=== PATIENT | female | born 1985 | race Two or more races ===

== ENCOUNTER 2021-12-17 03:41 | Inpatient (IN) | payer BC ==
[2021-12-17 04:27] VITALS: BMI 29.7
[2021-12-17] MEDS: DEXTROSE 5%-LACTATED RINGERS 1,000 ML IV SCH (04:30)
[2021-12-17] MEDS ORDERED: BUTORPHANOL TARTRATE 1 MG/ML VIAL IVPB ONE (04:30)
[2021-12-17] MEDS ORDERED: PROMETHAZINE HCL 25 MG/1 ML VIAL IVPB ONE (04:30)
[2021-12-17 04:52] LABS: BASO % 0.3 % (0-2.0); EOS % 0.7 % (0-4.5); HEMATOCRIT 38.8 % (32.4-45.2); HEMOGLOBIN 13.4 GM/dL (10.7-15.3); LYMPH % 20.8 % (8-40); MCH 30.6 pg (25.7-33.7); MCHC 34.5 g/dl (32.0-36.0); MEAN CELL VOLUME 88.6 fl (80-96); MEAN PLT VOLUME 7.9 fl (7.5-11.1); MONO % 9.7 % (3.8-10.2); NEUT % 68.5 % (42.8-82.8); PLATELET COUNT 207 10^3/uL (134-434); RBC 4.38 M/mm3 (3.60-5.2); RDW 14.9 % (11.6-15.6); WHITE BLOOD COUNT 6.2 K/mm3 (4.0-10.0)
[2021-12-17] MEDS ORDERED: BUTORPHANOL TARTRATE 2 MG/ML VIAL ONE (05:06)
[2021-12-17] MEDS ORDERED: PROMETHAZINE HCL 25 MG/1 ML VIAL ONE (05:06)
[2021-12-17 05:14] LABS: CALCIUM 8.7 mg/dL (8.5-10.1)
[2021-12-17 05:15] LABS: BLOOD UREA NITROGEN 13.7 mg/dL (7-18)
[2021-12-17 05:18] LABS: CREATININE 0.7 mg/dL (0.55-1.3); INR 0.86 (0.83-1.09); PROTHROMBIN TIME (PATIENT) 9.9 SEC (9.7-13.0)
[2021-12-17 05:20] LABS: ACTIVATED PTT 27.1 SECONDS (25.2-36.5)
[2021-12-17] MEDS ORDERED: OXYTOCIN 30 UNITS in 0.9% NS 30 UNIT/500 ML INFUS.BAG IVPB SCH (05:30)
[2021-12-17] MEDS ORDERED: OXYTOCIN 30 UNITS in 0.9% NS 30 UNIT/500 ML INFUS.BAG IVPB ONE (05:36)
[2021-12-17 06:10] LABS: HIV INTERPRETATION NEGATIVE (NEGATIVE)
[2021-12-17] MEDS ORDERED: FENTANYL/BUPIVACAINE/NS/PF - PCEA - 50 ML DISP.SYRIN EP ONE ×2 (07:40→12:08)
[2021-12-17] MEDS ORDERED: BUPIVACAINE HCL/PF 0.25% (2.5MG/ML) 10 ML VIAL ONE ×2 (07:54→13:01)
[2021-12-17] MEDS ORDERED: NALOXONE HCL 0.4 MG/ML VIAL IVPUSH PRN (07:57)
[2021-12-17] MEDS: FENTANYL/BUPIVACAINE/NS/PF - PCEA - 50 ML DISP.SYRIN EP SCH ×2 (08:15→12:30)
[2021-12-17] MEDS ORDERED: LIDOCAINE HCL 1% PRESERVATIVE FREE - 30ML VIAL ONE (14:52)
[2021-12-17] MEDS ORDERED: OXYTOCIN 20 UNITS in 0.9% NS 20 UNIT/1,000 ML INFUS.BAG IV ONE (14:52)
[2021-12-17] MEDS ORDERED: BENZOCAINE 20% 57 GM BOTTLE TP PRN (16:06)
[2021-12-17] MEDS ORDERED: oxyCODONE HCL 5 MG TABLET PO PRN (16:06)
[2021-12-17] MEDS ORDERED: ACETAMINOPHEN 325 MG TABLET (FP) PO PRN (16:06)
[2021-12-17] MEDS ORDERED: BISACODYL 10 MG SUPP.RECT RC PRN (16:06)
[2021-12-17] MEDS ORDERED: BENZOCAINE 28 GM HEMORRHOIDAL OINTMENT TP PRN (16:06)
[2021-12-17] MEDS ORDERED: METHYLERGONOVINE MALEATE 0.2 MG/1 ML AMP IM PRN (16:06)
[2021-12-17] MEDS ORDERED: OXYTOCIN 20 UNITS in 0.9% NS 20 UNIT/1,000 ML INFUS.BAG IV SCH (16:15)
[2021-12-17] MEDS: IBUPROFEN 600 MG TABLET (FP) PO PRN (16:25)
[2021-12-17] MEDS ORDERED: IBUPROFEN 600 MG TABLET (FP) PO ONE (16:26)
[2021-12-17] MEDS: WITCH HAZEL 50% (TUCKS) 40 PAD/JAR PAD TP PRN ×2 (18:10→22:00)
[2021-12-18] MEDS: IBUPROFEN 600 MG TABLET (FP) PO PRN ×3 (01:33→21:58)
[2021-12-18 08:27] LABS: BASO % 0.1 % (0-2.0); EOS % 0.5 % (0-4.5); HEMATOCRIT 32.6 % (32.4-45.2); HEMOGLOBIN 11.3 GM/dL (10.7-15.3); MCH 30.7 pg (25.7-33.7); MCHC 34.6 g/dl (32.0-36.0); MEAN CELL VOLUME 88.8 fl (80-96); MEAN PLT VOLUME 7.8 fl (7.5-11.1); MONO % 6.4 % (3.8-10.2); PLATELET COUNT 190 10^3/uL (134-434); RBC 3.68 M/mm3 (3.60-5.2); RDW 15.4 % (11.6-15.6); WHITE BLOOD COUNT 12.5 K/mm3 (4.0-10.0)
[2021-12-18 11:30] LABS: EPI CELLS 14 /uL (0-25.1); HYALINE CASTS 11 /uL (0-3.1); PH,URINE 6.5 (5.0-8.0); URINE APPEARANCE CLOUDY; URINE BACTERIA 29 /uL (0-1359); URINE BILIRUBIN NEGATIVE (NEGATIVE); URINE COLOR RED; URINE GLUCOSE (UA) NEGATIVE (NEGATIVE); URINE KETONE NEGATIVE (NEGATIVE); URINE LEUK ESTERASE 3+ (NEGATIVE); URINE NITRITE NEGATIVE (NEGATIVE); URINE PROTEIN 2+ (NEGATIVE); URINE RBC 8506 /uL (0-23.9); URINE UROBILINOGEN 0.2 mg/dL (0.2-1.0); URINE WBC 848 /uL (0-25.8)
[2021-12-18] MEDS ORDERED: SENNOSIDES/DOCUSATE COMBO (SENNA PLUS) TABLET (UD) PO PRN (22:00)
[2021-12-18] MEDS: DEXTROSE 5%-LACTATED RINGERS 1,000 ML IV SCH (23:13)
[2021-12-19] MEDS: IBUPROFEN 600 MG TABLET (FP) PO PRN (08:57)
[2021-12-19 09:59] VITALS: BP 111/76; PULSE 82; TEMP 97.9
== END 2021-12-19 14:00 | disposition home or self-care (01) | DRG 807 ==
LOC: JLDR 03:41 → J3W 17:35
PROVIDERS: ADMIT Specialist; ATTEND Specialist
PROC: 0W8NXZZ Division of Female Perineum, External Approach (ICD-10-PCS; principal; 2021-12-17)
PROC: 10E0XZZ Delivery of Products of Conception, External Approach (ICD-10-PCS; 2021-12-17)
DX: O48.0 Post-term pregnancy (principal); Z37.0 Single live birth; O69.81X0 Labor and delivery complicated by cord around neck, without compression, not applicable or unspecified; Z3A.40 40 weeks gestation of pregnancy
CPT/HCPCS: 36415; 59409; 80048; 81003; 85025; 85610; 85730; 86780; 86850; 86900; 86901; 87389; 88307-TC; C9803-CS; U0003; U0005